=== PATIENT | male | born 1965 ===

== ENCOUNTER 2018-05-31 01:28 | Emergency (ER) | payer OTHER ==
[~2018-05-31] VITALS: Ht 182.9 cm; Wt 111.1 kg
[~2018-05-31 01:28] MED LIST: CIPRO500 MG PO; FLAGYL500MG PO; OMEPRAZOLE40 MG PO
== END 2018-05-31 04:36 | disposition home or self-care (01) ==
LOC: ER 01:28
DX: R42 Dizziness and giddiness (principal); F10.229 Alcohol dependence with intoxication, unspecified

== ENCOUNTER 2021-10-08 09:49 | Emergency (ER) | payer OTHER ==
[~2021-10-08] VITALS: Ht 185.4 cm; Wt 113.4 kg
== END 2021-10-08 16:19 | disposition home or self-care (01) ==
LOC: ER 09:49
DX: R10.9 Unspecified abdominal pain (principal)